=== PATIENT | female | born 1980 | race Two or more races ===

== ENCOUNTER 2019-08-10 13:06 | Emergency (ER) | payer BC, OTHER ==
[~2019-08-10] VITALS: Ht 157.5 cm; Wt 81.6 kg
[2019-08-10 13:12] VITALS: BP 131/86
--- NOTE | 2019-08-10 13:18 | NUR ---
BEAU BONNER AT BEDSIDE FOR EVAL.
--- NOTE | 2019-08-10 13:38 | NUR ---
PT IS WHEELED TO CT SCAN VIA [facility].
--- NOTE | 2019-08-10 14:48 | NUR ---
Patient discharged to home in stable condition. Written and verbal after care instructions given. Patient verbalizes understanding of instruction.
== END 2019-08-10 14:49 | disposition home or self-care (01) ==
LOC: ER 13:15
DX: S63.681A Other sprain of right thumb, initial encounter (principal); F10.10 Alcohol abuse, uncomplicated; Y90.9 Presence of alcohol in blood, level not specified; X58.XXXA Exposure to other specified factors, initial encounter; Y93.89 Activity, other specified; Y92.89 Other specified places as the place of occurrence of the external cause; Y99.8 Other external cause status
CPT/HCPCS: 73200-TC

== ENCOUNTER 2021-01-07 12:01 | Emergency (ER) | payer BC ==
[~2021-01-07] VITALS: Ht 157.5 cm; Wt 77.1 kg
--- NOTE | 2021-01-07 12:14 | NUR ---
BIBS FROM HOME TO ER BED 6. AAOX4. NOT IN RESP DISTRESS. AMBULATORY. CAME IN FOR LLQ ABD PAIN SINCE SAT. PER PT, SHE HAD A URINALYSIS YESTERDAY AND IT WAS CLEAR. PT WAS TOLD TO GOT TO THE ER FOR FURTHER EVAL. MD AT BEDSIDE FOR EVAL.
[2021-01-07] MEDS ORDERED: IBUPROFEN 600 MG TABLET PO ONE (12:30)
[2021-01-07] MEDS ORDERED: ACETAMINOPHEN ES 500 MG TABLET PO ONE (12:30)
[2021-01-07 12:31] LABS: BILIRUBIN,URINE Negative (NEGATIVE); COLOR,URINE YELLOW (YELLOW); LEUKOCYTE ESTERASE ,URINE Negative (NEGATIVE); NITRITE, URINE Negative (NEGATIVE); PROTEIN,URINE Trace mg/dl (NEGATIVE); UGLUCOSE Negative (NEGATIVE); UROBILINOGEN,URINE 0.2 EU/dL (0.2)
[2021-01-07] MEDS ORDERED: IBUPROFEN 600 MG TABLET ONE (13:04)
[2021-01-07] MEDS ORDERED: ACETAMINOPHEN ES 500 MG TABLET ONE (13:04)
[2021-01-07 13:09] LABS: BACTERIA,URINE Moderate /HPF (None Seen); RBC,URINE 0-2 /HPF (0-2); SQUAMOUS EPITHELIAL CELL,UR Moderate /HPF (None Seen); WBC,URINE 0-2 /HPF (0-3)
[2021-01-07] MEDS ORDERED: NITR100C6 PO (13:19)
--- NOTE | 2021-01-07 13:31 | NUR ---
Patient discharged to home in stable condition. Written and verbal after care instructions given. Patient verbalizes understanding of instruction. Pt ambulatory with a steady gait
[2021-01-07 13:32] VITALS: BP 135/75
== END 2021-01-07 13:32 | disposition home or self-care (01) ==
LOC: ER 12:06
DX: N83.202 Unspecified ovarian cyst, left side (principal); N39.0 Urinary tract infection, site not specified
CPT/HCPCS: 76856-TC; 81001; 84703-TC; 87086-TC